=== PATIENT | male | born 1975 | race Hispanic/Latino ===

== ENCOUNTER 2025-01-27 23:55 | Emergency (ER) | payer OTHER ==
[~2025-01-27] VITALS: Ht 175.3 cm; Wt 74.8 kg
[~2025-01-27 23:55] MED LIST: ARIP10TA86 PO; DOCU100C33 PO; FAMO20TA8 PO; FLUO25PO10 MC; HYDR-3422 PO; PRAZ1CAP5 PO
[2025-01-27 23:56] VITALS: TEMP 97.9
[2025-01-28 00:41] LABS: CREATININE 1.1 mg/dL (0.5-1.3); GLOMERULAR FILTR. RATE CALC 82.0 mL/min (>90); GLUCOSE,RANDOM 110.0 mg/dL (70-105); SODIUM SERUM 138.0 mmol/L (136-145); UREA NITROGEN, BLOOD 18.0 mg/dL (7-18)
[2025-01-28 00:43] LABS: IMMATURE GRANULOCYTE ABSOLUTE 0.07 K/uL (0-1); NUCLEATED RED BLOOD CELLS 0.0 % (0.0-0.19); PLATELET COUNT (AUTO) 219 K/uL (130-400); RED BLOOD CELL COUNT(AUTO) 5.71 MIL/uL (4.50-6.20); RED CELL DISTRIBUTION WIDTH 13.1 % (11.0-15.5); WHITE BLOOD COUNT (AUTO) 10.3 K/uL (4.8-10.8)
[2025-01-28 00:44] LABS: CREATINE KINASE, TOTAL 105.0 U/L (21-232)
[2025-01-28] MEDS: LIDOCAINE HCL 2% VISCOUS 15 ML UDCUP PO ONE (01:38)
[2025-01-28] MEDS: MAG/ALUM/SIMETH 30 ML UDCUP PO ONE (01:38)
[2025-01-28] MEDS: DICYCLOMINE HCL 10 MG/5 ML ML PO ONE (01:38)
--- NOTE | 2025-01-28 01:56 | ERN ---
ED Note History of Present Illness Stated Complaint: CHEST PAIN, BACK PAIN ABD PAIN Chief Complaint: Multiple Complaints Time Seen by MD: 00:33 Dictation: Mr. Vela is a 50-year-old male who presented to the emergency room with his mother with complaints of lower chest pressure radiating to the abdomen and also to the back. He took a sleep aid prior to coming to the ER and he was concerned that he may have a pericardial effusion or pericarditis which he had in the past and came in for evaluation. No diaphoresis or syncope. No radiation of the pain to shoulder other than what I described above mild nausea reported. No vomitings diarrhea hematemesis or melena. Does give a history of heartburn. Temperature 97.9 pulse 90 respirations 24 blood pressure 146/107 with a pulse oximetry of 100% on room air Chronic medical problems include PTSD and polysubstance abuse. Previous history of pericarditis Allergies: Coded Allergies: naltrexone (Unverified Allergy, Unknown, 02/04/22) Home Meds Active Scripts Pantoprazole Sodium (Protonix) 40 Mg Tablet.dr, 1 TAB PO DAILY for 30 Days, #30 TAB 0 Refills Prov:CARLENE MCKENNA MD 01/28/25 Ketorolac Tromethamine (Toradol) 10 Mg Tab, 10 MG PO QID for pain for 5 Days, #20 TAB 0 Refills Prov:CARLENE MCKENNA MD 01/28/25 Reported Medications Prazosin HCl (Prazosin HCl) 1 Mg Capsule, 1 MG PO HS, CAP 02/04/22 Hydroxyzine HCl (Hydroxyzine HCl) 50 Mg Tablet, 50 MG PO AD, TAB 02/04/22 Fluoxetine (Fluoxetine HCl) 25 Gm Powder, 20 GM MC AD, APPL 02/04/22 Famotidine (Famotidine) 20 Mg Tablet, 20 MG PO DAILYDINNER, TAB 02/04/22 Docusate Sodium (Docusate Sodium) 100 Mg Capsule, 100 MG PO BID, CAP 02/04/22 Aripiprazole (Aripiprazole) 10 Mg Tablet, 5 MG PO DAILYDINNER, TAB 02/04/22 Past Medical History Past Medical History: Anxiety, Depression Additional Past Medical Hx: PTSD, SUBSTANCE ABUSE. " FLUID AROUND HEART" Surgical History: Other Surgical History Other: RT EYE Family History: Negative Social History: Drugs RN Note Reviewed/Agreed w/PFSH: Yes Review of System Dictation Constitutional: Negative for fever,chills, and weight loss Eyes: Negative for injury, pain,redness, and discharge ENT: Negative for injury,pain or swelling Cardiovascular: Positive for chest pressure radiating to the epigastric area in the back, denied palpitations, and edema Respiratory: Negative for shortness of breath, cough, and wheezing, Abdomen/GI: Negative for abdominal pain, nausea, vomiting, diarrhea, and constipation Back: Negative for injury and pain : Negative for injury, bleeding and discharge MS/Extremity: Negative for injury and deformity Skin: Negative for rash, and discoloration Neuro: Negative for headache, weakness, numbness, tingling, and seizure Psych: Negative for suicide ideation, homicidal ideation, and hallucinations Initial Vital Sign VS Vital Signs Date Time Temp Pulse Resp B/P (MAP) Pulse Ox O2 Delivery O2 Flow Rate FiO2 01/27/25 23:56 97.9 90 24 146/107 100 Room Air 01/28/25 02:05 0 21 Physical Exam Dictation General: awake, alert, NAD very pleasant male patient's mother at bedside. Head/Face: Normocephalic, atraumatic Eyes: PERRL, EOMI, vision at baseline ENT: oral cavity clear, TMs clear, no signs of infection Neck: Trachea midline, supple, no nuchal rigidity Cardiovascular: RRR, normal S1/S2, No MRGs, no JVD Respiratory: CTAB, no respiratory distress, No rales or wheezes Abdomen: Soft, non-tender, non-distended, normal bowel sounds, no guarding or rebound. Skin: Warm, dry, normal turgor, no rash MS/Extremity: Pulses equal, no cyanosis, neurovascular intact, FROM Neuro: COAx4, GCS 15, strength 5/5, CN 2-12 intact, normal cerebellar exam, norm al gait, Psych: Normal behavior, mood, and affect normal Extremities-trace edema without any palpable cords, Homans sign is negative Results (Laboratory/Radiology) Laboratory/Radiology Laboratory Tests Test 01/28/25 00:15 White Blood Count 10.3 K/uL (4.8-10.8) Red Blood Count 5.71 MIL/uL (4.50-6.20) Hemoglobin 16.6 g/dL (14.0-18.0) Hematocrit 47.2 % (42-54) Mean Corpuscular Volume 82.7 fL (79-99) Mean Corpuscular Hemoglobin 29.1 pg (27.0-33.0) Mean Corpuscular Hemoglobin Concent 35.2 g/dL (32.0-36.0) Red Cell Distribution Width 13.1 % (11.0-15.5) Platelet Count 219 K/uL (130-400) Mean Platelet Volume 10.4 fL (7.5-10.5) Immature Granulocyte % (Auto) 0.7 % (0-1) Neutrophils (%) (Auto) 79.7 % (40.0-77.0) H Lymphocytes (%) (Auto) 13.2 % (21.0-51.0) L Monocytes (%) (Auto) 5.8 % (3.0-13.0) Eosinophils (%) (Auto) 0.2 % (0.0-8.0) Basophils (%) (Auto) 0.4 % (0.0-5.0) Neutrophils # (Auto) 8.2 K/uL (1.8-7.7) H Lymphocytes # (Auto) 1.4 K/uL (1.0-4.8) Monocytes # (Auto) 0.6 K/uL (0.1-1.0) Eosinophils # (Auto) 0.02 K/uL (0.00-0.70) Basophils # (Auto) 0.04 K/uL (0.00-0.20) Absolute Immature Granulocyte (auto 0.07 K/uL (0-1) Nucleated Red Blood Cells 0.0 % (0.0-0.19) Sodium Level 138 mmol/L (136-145) Potassium Level 3.4 mmol/L (3.5-5.1) L Chloride Level 103 mmol/L (101-111) Carbon Dioxide Level 22 mmol/L (21-32) Blood Urea Nitrogen 18 mg/dL (7-18) Creatinine 1.1 mg/dL (0.5-1.3) Glomerular Filtration Rate Calc 82 mL/min (>90) Random Glucose 110 mg/dL (70-105) H Total Calcium 9.5 mg/dL (8.5-10.1) Total Creatine Kinase 105 U/L (21-232) # Troponin I High Sensitivity 5 ng/L (4-75) Labs Reviewed?: Yes X-RAY Comment: REASON: CHEST PAIN ORDERING PHYSICIAN: CARLENE MCKENNA MD PROCEDURE: CXR1VW - CHEST 1VW EXAM: CR Chest, 1 view CLINICAL HISTORY: Chest pain. COMPARISON: Chest radiograph dated 02/05/2022. FINDINGS: The lungs show no infiltrates or other acute findings. No pleural effusion or pneumothorax. The cardiomediastinal silhouette is within normal limits. No acute osseous abnormality. IMPRESSION: No acute cardiopulmonary process is evident. No interval changes. /[place] DICTATED BY: ELEANOR RICE Jr., MD DATE: 01/28/25321 ELECTRONICALLY SIGNED BY: ELEANOR RICE Jr., MD DATE: 01/28/25321 ED Course ED Course Orders Procedure Category Date Status Time Vital Signs Per CPOE 01/27/25 Transmitted Routine 23:56 Chest 1vw RAD 01/27/25 Resulted 23:56 12 Lead Ekg Tracing- EKG 01/27/25 Complete Technical 23:56 Oxygen By Nc/Pulse Ox CPOE 01/27/25 Transmitted 23:56 Maintain Iv CPOE 01/27/25 Transmitted 23:56 Iv Insertion CPOE 01/27/25 Transmitted 23:56 Cardiac Monitoring CPOE 01/27/25 Transmitted 23:56 Pulse Oximetry With CPOE 01/27/25 Transmitted Vs And Prn 23:56 Cbc With Differential LAB 01/27/25 Complete 23:56 Activity: Br W/Brp CPOE 01/27/25 Transmitted With Assist 23:56 Creatine Kinase, Total LAB 01/27/25 Complete 23:56 Troponin I High LAB 01/27/25 Complete Sensitivity 23:56 Basic Metabolic Panel LAB 01/27/25 Complete 23:56 Ketorolac PHA 01/28/25 Complete Tromethamine 15mg/Ml 01:00 Ondansetron 4mg Inj PHA 01/28/25 Complete (Zofran 4mg Inj) 01:00 Lidocaine Hcl 2% PHA 01/28/25 Complete Viscous (Lidocaine Hcl 01:00 Mag/Alum/Simeth 30ml PHA 01/28/25 Complete (Maalox Plus 30ml) 01:00 Dicyclomine Hcl PHA 01/28/25 Complete (Bentyl 10mg/5ml 01:00 Ketorolac PHA 01/28/25 Complete Tromethamine 15mg/Ml 01:30 Current Medications Medications (Trade) Dose Ordered Sig/Lora Route PRN Reason Start Time Stop Time Status Last Admin Dose Admin Al Hydroxide/Mg Hydroxide (MAALox PLUS 30ML) 30 ml ONCE ONCE PO 01/28/25 01:00 01/28/25 01:01 DC 01/28/25 01:38 Dicyclomine HCl (Bentyl 10mg/5ml Syrup) 10 mg ONCE ONCE PO 01/28/25 01:00 01/28/25 01:01 DC 01/28/25 01:38 Ketorolac Tromethamine (toRADol) 15 mg ONCE ONCE IM 01/28/25 01:30 01/28/25 01:31 DC 01/28/25 01:38 Ketorolac Tromethamine (toRADol) 15 mg ONCE ONCE IV 01/28/25 01:00 01/28/25 01:01 DC Lidocaine HCl (Lidocaine HCl 2% Viscous) 10 ml ONCE ONCE PO 01/28/25 01:00 01/28/25 01:01 DC 01/28/25 01:38 Ondansetron HCl (zoFRAN 4MG INJ) 4 mg ONCE ONCE IVP 01/28/25 01:00 01/28/25 01:01 DC 01/28/25 01:38 Vital Signs Date Time Temp Pulse Resp B/P (MAP) Pulse Ox O2 Delivery O2 Flow Rate FiO2 01/28/25 02:56 95 18 126/96 98 Room Air* 0 21 01/28/25 02:05 91 18 156/99 98 Room Air* 0 21 01/27/25 23:56 97.9 90 24 146/107 100 Room Air We will perform diagnostic labs, advanced imaging and administer medications according to the patient's complaint. Once the results are available, will rev iew and personally interpreted the labs to rule out any acute life-threatening emergency the trach require immediate intervention and treatment. I will then re-evaluate the patient after treatment and diagnostic exams have return to determine whether the patient requires any further testing, can safely be discharged home or need further admission to hospital for additional treatment and evaluation. Labs reviewed CBC showed a white count of 10.3 hemoglobin 16.6 platelets 219. Troponins are negative total CK 106. BNP 7 showed a sodium of 138 potassium 3.4 BUN and creatinine are 18 and 1.1. Chest x-ray showed hyperinflation with COPD changes no cardiomegaly or pulmonary vascular congestion noted. EKG did not reveal any acute ST-T elevations or deep ST depressions. Patient received symptomatic treatment for gastroesophageal reflux and admitted to significant improvement. I updated the patient and his mother on available labs EKG chest x-ray findings and answered all their questions Discharge to home on a PPI and follow up with his primary care physician HEART Score Response (Comments) Value History: Moderate suspicion (+1) 1 EKG: Normal 0 Age: 45-65yrs (+1) 1 Risk Factors: No known risk factors (0) 0 Initial Troponin: Normal limit (0) 0 HEART Score Risk: Low Risk for MACE (1-3) Total 2 Medical Decision Making MDM MDM: Differential diagnosis: Chest wall pain, esophagitis, gastroesophageal reflux, gastritis, dyspepsia, peptic ulcer disease, hiatal hernia Rationale: Tests considered and ordered secondary to shared decision making include: Previous outside records reviewed: Old ER visits. Risk of complication and/or morbidity or mortality of patient management: None Medications-Per medication reconciliation Need for hospitalization: Patient does not meet criteria for hospitalization. Need for emergency major/minor surgery: No There are no social concerns with this patient. Prescription drug management Prescriptions will include symptomatic care Patient's prior external medical records from other ER visits were reviewed by me as indicated. Prior testing and results from previous visits were reviewed. Prior tests were taken into account with medical decision making and resource utilization, independent historian/historians were used to obtain complete medical history. I independently interpreted the test that were performed, results were reviewed by me and considered findings on radiology if ordered. Medical management and examination interpretation discussions were had by me with other qualified healthcare professionals as indicated for the patient's c are. Problem List Problem List: (1) Chest pain (2) Amphetamine use (3) History of intravenous drug abuse DX & DISP Disposition: Discharge Departure Impression: Primary Impression: Chest pain Additional Impressions: Amphetamine use, History of intravenous drug abuse Condition: Stable Scripts Pantoprazole Sodium (Protonix) 40 Mg Tablet. 1 TAB PO DAILY for 30 Days, #30 TAB 0 Refills Prov: CARLENE MCKENNA MD 01/28/25 Ketorolac Tromethamine (Toradol) 10 Mg Tab 10 MG PO QID for pain for 5 Days, #20 TAB 0 Refills Prov: CARLENE MCKENNA MD 01/28/25 Additional Instructions: Patient and the caregiver have been informed of all the diagnostic tests and the imaging conducted during the today's visit to the emergency room and has verbalized understanding of the results I have personally reviewed and interpreted all diagnostic exams performed here in the ER today as well as the vital signs documented by the nursing staff. The patient is now being discharged to home and should follow up with the primary care physician or the specialist as directed by the ER staff. Follow-up with primary care provider in 1 to 2 days. Take medications as directed here in the emergency room. Okay to continue home medications unless otherwise discussed during your visit in the emergency room today. Return to your nearest emergency room if symptoms worsen or if there is no improvement. Call 911 if you need immediate assistance. Take Tylenol or Motrin [id number] as needed and if no contraindications are present. Increase oral hydration. A wound culture or urine culture was ordered here in the emergency room department please follow-up with primary care provider and advise them to get repeat ports from our facility. If you had any [place] wrap/splints that were applied here, please do not remove them until you see your primary care or specialty. Referrals: SELF,REFERRAL (PCP) CARLENE MCKENNA MD Jan 28, 2025 01:56
--- NOTE | 2025-01-28 02:23 | HMCIMG ---
EXAM: CR Chest, 1 view CLINICAL HISTORY: Chest pain. COMPARISON: Chest radiograph dated 02/05/2022. FINDINGS: The lungs show no infiltrates or other acute findings. No pleural effusion or pneumothorax. The cardiomediastinal silhouette is within normal limits. No acute osseous abnormality. IMPRESSION: No acute cardiopulmonary process is evident. No interval changes. /[place]
[2025-01-28] MEDS ORDERED: KETO10 PO (02:46)
[2025-01-28] MEDS ORDERED: PANT40TA PO (02:46)
[2025-01-28 02:56] VITALS: BP 126/96; PULSE 95; RESP 18; O2SAT 98
--- NOTE | 2025-01-28 06:00 | EKG ---
[facility] Test Date: 2025-01-27 Test Time: 23:48:45 Pat Name: MELIA CHANG Department: ED Room: Gender: M Crude Unit Operator: [facility] : 1975 Requested By: CARLENE MCKENNA Order Number: [id number] Reading MD: Sania Mcneil Measurements Intervals Crane Rate: 71 P: 52 WA: 136 QRS: 42 QRSD: 80 T: 181 QT: 407 QTc: 434 Interpretive Statements Sinus rhythm Atrial premature complex Abnormal T, consider ischemia, diffuse leads Compared to ECG 02/05/2022 05:57:53 Atrial premature complex(es) now present T-wave abnormality now present Possible ischemia now present Electronically Signed On 01-28-2025 16:48:14 CDT by Sania Mcneil Please click the below link to view image of tracing.
== END 2025-01-28 02:58 | disposition home or self-care (01) ==
LOC: EDH 23:55
DX: R07.89 Other chest pain (principal); F15.90 Other stimulant use, unspecified, uncomplicated; F41.9 Anxiety disorder, unspecified; F32.A Depression, unspecified; F43.10 Post-traumatic stress disorder, unspecified; Z79.899 Other long term (current) drug therapy
CPT/HCPCS: 99285; 71045; 82550; 84484; 80048; 85025; 36415; 93005; 96374; 96372; J1885; J2405